=== PATIENT | female | born 1955 | race Caucasian/White ===

== ENCOUNTER → 2020-08-25 | Outpatient (REF) | payer MEDICARE | LOC: M LAB REF 14:50 | PROVIDERS: ATTEND Physician Assistant | DX: L57.0 Actinic keratosis (principal) | CPT/HCPCS: 11102; 17110; 88305; G0463 ==

== ENCOUNTER → 2021-08-29 | Outpatient (REF) | payer MEDICARE | LOC: M SFHCDERM 17:54 | PROVIDERS: ATTEND Physician Assistant | DX: D23.39 Other benign neoplasm of skin of other parts of face (principal) ==

== ENCOUNTER → 2022-09-21 | Outpatient (REF) | payer MEDICARE | LOC: M SFHCDERM 17:49 | PROVIDERS: ATTEND Physician Assistant | DX: C44.612 Basal cell carcinoma of skin of right upper limb, including shoulder (principal); M27.8 Other specified diseases of jaws ==